=== PATIENT | female | born 1995 | race Caucasian/White ===

== ENCOUNTER → 2017-11-03 | Outpatient (CLI) | payer BC ==
[~2017-11-03] MED LIST: Inderal40 MG; NORETHIN-ESTRA1 EAC1 PO; OMEP10ER PO; RANI150 PO
[2017-11-03 16:34] LABS: Source, Urine Clean Catch
[2017-11-03 18:30] LABS: Bilirubin, Urine Neg (Neg); Blood, Urine 5+ (Neg); Glucose Qualitative, Urine Neg (Neg); Ketones, Urine Neg (Neg); Leukocyte Esterase, Urine 2+ (Neg); Nitrite, Urine Pos (Neg); Protein, Urine 2+ (Neg); Specific Gravity, Urine 1.015 (1.003-1.022); Urobilinogen, Urine NORM (Normal)
[2017-11-03 19:03] LABS: Appearance, Urine Hazy (Clear); Color, Urine Yellow (P-Yellow)
[2017-11-03 19:05] LABS: Bacteria Mod /hpf; Red Blood Cells, Urine 50-100 /hpf (0-2); Squamous Epithelial Cells Few /hpf (Few); White Blood Cells, Urine 50-100 /hpf (0-5)
== END | disposition home or self-care (01) ==
LOC: LAB 12:28
PROVIDERS: Obstetrics & Gynecology
DX: R30.0 Dysuria (principal)
CPT/HCPCS: 81001; 87077; 87086; 87186

== ENCOUNTER → 2024-11-21 | Outpatient (CLI) | payer BC ==
[2024-11-23 18:03] LABS: C. TRACHOMATIS BY TMA,THINPREP Negative (Negative); N. GONORRHOEAE BY TMA,THINPREP Negative (Negative); SPECIMEN SOURCE Cervical/Vag
== END | disposition home or self-care (01) ==
LOC: LAB SHORT 10:10
PROVIDERS: Obstetrics & Gynecology
DX: Z01.419 Encounter for gynecological examination (general) (routine) without abnormal findings (principal); Z11.3 Encounter for screening for infections with a predominantly sexual mode of transmission
CPT/HCPCS: 87491; 87591

== ENCOUNTER 2025-01-23 09:59 | Day surgery (SDC) | payer BC ==
[2025-01-23] VITALS (12 sets, daily range): BP systolic 91–117; BP diastolic 48–82
[~2025-01-23] VITALS: Ht 162.6 cm; Wt 67.0 kg
[2025-01-23] MEDS ORDERED: propofoL 20 ML IV ONE (10:58)
[2025-01-23] MEDS ORDERED: FentaNYL Citrate 50 MCG/ML 2 ML Injection ONE (10:59)
[2025-01-23] MEDS ORDERED: Lidocaine HCl 1% 5 ML SYR INJ ONE (11:10)
[2025-01-23] MEDS ORDERED: FentaNYL Citrate 50 MCG/ML 2 ML Injection IV PRN ×2 (11:15→11:20)
[2025-01-23] MEDS ORDERED: Albuterol 2.5 MG/3 ML VIAL INH PRN (11:15)
[2025-01-23] MEDS ORDERED: Lactated Ringer's 1,000 ML IV SCH (11:15)
[2025-01-23] MEDS ORDERED: Ondansetron HCl 2 MG / ML 2ML Vial IV PRN (11:15)
[2025-01-23] MEDS ORDERED: Metoclopramide HCl 5MG / ML 2ML Vial IV PRN (11:20)
--- NOTE | 2025-01-23 11:51 | NUR ---
History, Chart, Medications and Allergies reviewed before start of procedure. Patient up to Ambulate independently. Gait steady. Pre-Op teaching done. Pt verbalizes understanding. Patient confirms NPO status and agrees with scheduled surgery. Lungs clear T/O to Auscultation. Patient States Post-Procedure ride home has been arranged.
[2025-01-23] MEDS ORDERED: Ondansetron HCl 2 MG / ML 2ML Vial ONE (11:55)
[2025-01-23] MEDS ORDERED: Dexamethasone Sod Phos 10 MG/ML 1ML VIAL ONE (11:55)
[2025-01-23] MEDS ORDERED: Midazolam HCl 1MG / ML 2ML Vial IV ONE (12:00)
[2025-01-23] MEDS ORDERED: Albuterol 2.5 MG/3 ML VIAL INH ONE (12:00)
[2025-01-23] MEDS ORDERED: Ketorolac Tromethamine 30mg Vial ONE (12:24)
--- NOTE | 2025-01-23 13:37 | NUR ---
Patient up to Ambulate independently. Gait steady. Discharge instructions reviewed with patient. Patient verbalizes understanding. Copy given to patient to take home. Discharged via wheelchair to private car for ride home.
== END 2025-01-23 13:40 | disposition home or self-care (01) ==
LOC: ORD 09:59 → ORSCMMR 09:59 → ORD 10:04 → ORSCMMR 10:04 → ORD 13:40 → ORSCMMR 13:40
PROVIDERS: Obstetrics & Gynecology
PROC: 0UDB8ZX Extraction of Endometrium, Via Natural or Artificial Opening Endoscopic, Diagnostic (ICD-10-PCS; principal; 2025-01-23 12:00)
DX: R93.89 Abnormal findings on diagnostic imaging of other specified body structures (principal); N92.6 Irregular menstruation, unspecified; K21.9 Gastro-esophageal reflux disease without esophagitis
CPT/HCPCS: 88305; J1100; J1885; J2250; J2405; J2704; J3010; J7120

== ENCOUNTER 2025-02-11 16:49 | Emergency (ER) | payer BC ==
[~2025-02-11] VITALS: Ht 162.6 cm; Wt 65.8 kg
[2025-02-11 17:18] VITALS: BP 140/91
[2025-02-11] MEDS ORDERED: OxyCODONE HCL 5 MG TAB PO ONE (17:25)
[2025-02-11] MEDS ORDERED: Diphth,Pertuss(Acell),Tet Vac 0.5 ML VIAL IM ONE (17:25)
[2025-02-11] MEDS ORDERED: CeFAZolin Sodium 2,000 MG VIAL IM ONE (17:25)
[2025-02-11] MEDS ORDERED: CeFAZolin Sodium 2,000 MG in NS 100 ML IV ONE (18:05)
[2025-02-11] MEDS ORDERED: CEPH500 PO (19:39)
[2025-02-11] MEDS ORDERED: RX Prepack 6 Tabs Oxycodone 5mg UD ONE (19:50)
== END 2025-02-11 19:49 | disposition home or self-care (01) ==
LOC: ER 16:49
DX: S62.606B Fracture of unspecified phalanx of right little finger, initial encounter for open fracture (principal); S61.214A Laceration without foreign body of right ring finger without damage to nail, initial encounter; S67.21XA Crushing injury of right hand, initial encounter; W20.8XXA Other cause of strike by thrown, projected or falling object, initial encounter; Z88.0 Allergy status to penicillin; Z88.1 Allergy status to other antibiotic agents; Z23 Encounter for immunization
CPT/HCPCS: 12002; 90715; 96374-59; 99282-25; A9270; J0690